=== PATIENT | male | born 1985 | race Caucasian/White ===

== ENCOUNTER 2016-12-01 19:07 | Emergency (ER) | payer SELFPAY ==
[~2016-12-01] VITALS: Ht 185.4 cm; Wt 91.2 kg
[~2016-12-01 19:07] MED LIST: ADVIL LIQUI-GE200 MG PO; CLINDAMYCIN HC150 MG PO; DOXYCYCLINE 10100 MG PO; FISH OIL 1000MG1 CAP PO; MONODOX100 PO; MULTI VITAMINS1 TAB PO; NO HOME MEDICATIONS; PEPCID 20MG TAB20 MG PO; PERCOCET 5/321 UDTAB PO; PYRIDIUM200 M1 PO; TRIAMCINOLONE A15 G3 TP; XANAX 0.5MG0.5 MG PO; XANAX 1MG1 MG PO; ZITHROMAX 250M250 MG PO; ZOFRAN 4MG T4 MG/TAB PO
[2016-12-01 19:22] VITALS: BP 146/93; PULSE 96; TEMP 98.6
[2016-12-01] MEDS ORDERED: CALCIUM 600MG+D1 TAB PO (19:47)
[2016-12-01] MEDS ORDERED: FERROUS SULFATE65 MG PO (19:47)
[2016-12-01] MEDS ORDERED: DOXYCYCLINE 10100 MG PO (21:09)
== END 2016-12-01 21:41 | disposition home or self-care (01) ==
LOC: COL.ER 19:07
DX: J06.9 Acute upper respiratory infection, unspecified (principal); F17.210 Nicotine dependence, cigarettes, uncomplicated

== ENCOUNTER 2018-04-10 20:12 | Emergency (ER) | payer SELFPAY ==
[~2018-04-10 20:12] MED LIST changes: +CALCIUM 600MG+D1 TAB PO; +FERROUS SULFATE65 MG PO
[2018-04-10 20:21] VITALS: TEMP 99.3
[2018-04-10 21:17] LABS: COLLECTION METHOD CLEAN CATCH
[2018-04-10 21:22] LABS: MUCOUS Present /lpf; PH 5 (5-8); SQUAMOUS EPITHELIAL None Seen /hpf; URINE APPEARANCE Clear; URINE BACTERIA None Seen /hpf; URINE BILIRUBIN Negative (NEGATIVE); URINE BLOOD Negative (NEGATIVE); URINE COLOR Yellow; URINE GLUCOSE Negative (NEGATIVE); URINE KETONE Negative (NEGATIVE); URINE LEUKOCYTE ESTERASE Negative (NEGATIVE); URINE NITRATE Negative (NEGATIVE); URINE PROTEIN(semi-quant) Negative (NEGATIVE); URINE RBC 0-2 /hpf; URINE UROBILINOGEN Negative (NEGATIVE)
[2018-04-10] MEDS ORDERED: FLAGYL500 MG PO (21:41)
[2018-04-10 22:14] VITALS: BP 131/81; PULSE 80
== END 2018-04-10 22:16 | disposition home or self-care (01) ==
LOC: COL.ER 20:12
PROVIDERS: Physician Assistant
DX: Z20.2 Contact with and (suspected) exposure to infections with a predominantly sexual mode of transmission (principal); R07.9 Chest pain, unspecified; R36.9 Urethral discharge, unspecified
CPT/HCPCS: J0696

== ENCOUNTER 2018-06-23 12:50 | Emergency (ER) | payer SELFPAY ==
[~2018-06-23] VITALS: Ht 185.4 cm; Wt 84.8 kg
[~2018-06-23 12:50] MED LIST changes: +FLAGYL500 MG PO
[2018-06-23 12:53] VITALS: TEMP 98.3
[2018-06-23 13:46] LABS: COLLECTION METHOD CLEAN CATCH
[2018-06-23 13:52] LABS: PH 5 (5-8); SQUAMOUS EPITHELIAL 0-2 /hpf; URINE APPEARANCE Clear; URINE BACTERIA None Seen /hpf; URINE BILIRUBIN Negative (NEGATIVE); URINE BLOOD Negative (NEGATIVE); URINE COLOR Colorless; URINE GLUCOSE Negative (NEGATIVE); URINE KETONE Trace (NEGATIVE); URINE LEUKOCYTE ESTERASE Negative (NEGATIVE); URINE NITRATE Negative (NEGATIVE); URINE PROTEIN(semi-quant) Negative (NEGATIVE); URINE RBC None Seen /hpf; URINE UROBILINOGEN Negative (NEGATIVE)
[2018-06-23] MEDS ORDERED: DOXYCYCLINE 10100 MG PO (14:20)
[2018-06-23] MEDS ORDERED: FLONASEALLERGY NS (14:21)
[2018-06-23 14:31] VITALS: BP 134/81; PULSE 65
== END 2018-06-23 14:33 | disposition home or self-care (01) ==
LOC: COL.ER 12:50
PROVIDERS: Nurse Practitioner Primary Care
DX: J32.9 Chronic sinusitis, unspecified (principal); J45.909 Unspecified asthma, uncomplicated; F17.210 Nicotine dependence, cigarettes, uncomplicated

== ENCOUNTER 2019-01-12 11:15 | Emergency (ER) | payer SELFPAY ==
[~2019-01-12] VITALS: Ht 182.9 cm; Wt 81.8 kg
[~2019-01-12 11:15] MED LIST changes: +FLONASEALLERGY NS
[2019-01-12 11:19] VITALS: BP 132/75; PULSE 77; TEMP 97.6
== END 2019-01-12 11:54 | disposition home or self-care (01) ==
LOC: COL.ER 11:15
DX: H11.32 Conjunctival hemorrhage, left eye (principal)

== ENCOUNTER → 2019-12-11 | Emergency (ER) | payer SELFPAY ==
[~2019-12-11] VITALS: Ht 182.9 cm; Wt 82.2 kg
[~2019-12-11] MED LIST changes: +TRIAMCINOLONE A15 GM TP
[2019-12-11 21:58] VITALS: BP 136/90; PULSE 76; TEMP 98
== END ==
LOC: COL.ER 21:36
DX: R21 Rash and other nonspecific skin eruption (principal); F17.210 Nicotine dependence, cigarettes, uncomplicated

== ENCOUNTER 2019-12-12 20:23 | Emergency (ER) | payer SELFPAY ==
[~2019-12-12] VITALS: Ht 185.4 cm; Wt 81.8 kg
[~2019-12-12 20:23] MED LIST changes: -TRIAMCINOLONE A15 GM TP
[2019-12-12 20:42] VITALS: BP 129/87; PULSE 72; TEMP 98.6
[2019-12-12] MEDS ORDERED: TRIAMCINOLONE A15 GM TP (21:14)
== END 2019-12-12 21:36 | disposition home or self-care (01) ==
LOC: COL.ER 20:23
DX: R21 Rash and other nonspecific skin eruption (principal); F17.210 Nicotine dependence, cigarettes, uncomplicated

== ENCOUNTER 2021-07-21 15:29 | Emergency (ER) | payer SELFPAY ==
[~2021-07-21] VITALS: Ht 185.4 cm; Wt 83.2 kg
[~2021-07-21 15:29] MED LIST changes: +TRIAMCINOLONE A15 GM TP
[2021-07-21 16:06] VITALS: BP 144/74; PULSE 67; TEMP 98.1
== END 2021-07-21 17:55 | disposition home or self-care (01) ==
LOC: COL.ER 15:29
DX: Z71.1 Person with feared health complaint in whom no diagnosis is made (principal); F17.210 Nicotine dependence, cigarettes, uncomplicated